=== PATIENT | female | born 1980 | race Caucasian/White ===

== ENCOUNTER 2016-05-25 13:17 | Outpatient (CLI) | payer BC | END 2016-05-25 14:43 | disposition home or self-care (01) | LOC: GENOP 13:17 | DX: Z34.90 Encounter for supervision of normal pregnancy, unspecified, unspecified trimester (principal); Z3A.00 Weeks of gestation of pregnancy not specified ==

== ENCOUNTER → 2016-06-02 | Outpatient (CLI) | payer BC ==
[~2016-06-02] MED LIST: COLACE 100MG C100 MG PO
[2016-06-02 14:08] LABS: HEMOGLOBIN 11.6 gm/dl (12.3-15.3); RED BLOOD COUNT 4.22 M/UL (4.00-5.10); WHITE BLOOD COUNT 6.7 K/UL (4.5-11.0)
[2016-06-02 14:27] LABS: BUN/CREATININE RATIO 20 (0-10)
== END ==
LOC: GENOP 13:16
PROVIDERS: Obstetrics & Gynecology
DX: Z01.818 Encounter for other preprocedural examination (principal); O34.219 Maternal care for unspecified type scar from previous cesarean delivery; Z3A.00 Weeks of gestation of pregnancy not specified
CPT/HCPCS: 36415; 80048; 81001; 85025; J1580; J7030; J7050

== ENCOUNTER 2016-06-03 07:05 | Inpatient (IN) | payer BC ==
[~2016-06-03] VITALS: Ht 175.3 cm; Wt 119.7 kg
[2016-06-04 03:33] LABS: HEMOGLOBIN 8.7 gm/dl (12.3-15.3)
[2016-06-05] MEDS ORDERED: COLACE 100MG C100 MG PO (11:10)
== END 2016-06-05 12:16 | disposition home or self-care (01) | DRG 766 ==
LOC: OB 07:05
PROVIDERS: ADMIT Obstetrics & Gynecology
PROC: 10D00Z1 Extraction of Products of Conception, Low, Open Approach (ICD-10-PCS; principal; 2016-06-03 09:00)
DX: O34.211 Maternal care for low transverse scar from previous cesarean delivery (principal); Z3A.39 39 weeks gestation of pregnancy; Z37.0 Single live birth; O24.424 Gestational diabetes mellitus in childbirth, insulin controlled; Z87.891 Personal history of nicotine dependence; O99.214 Obesity complicating childbirth
CPT/HCPCS: 36415; 36600; 82800; 82962; 85014; 85018; 90715; C9113; J0690; J2300; J2590; J2765; J7030; J7120; Q0163

== ENCOUNTER → 2020-03-14 | Outpatient (CLI) | payer OTHER | LOC: EXRD 07:52 | DX: K76.0 Fatty (change of) liver, not elsewhere classified (principal) | CPT/HCPCS: 76700 ==

== ENCOUNTER → 2020-05-04 | Outpatient (CLI) | payer OTHER | LOC: RAD 21:14 | DX: R05 Cough (principal) | CPT/HCPCS: 71046 ==

== ENCOUNTER → 2021-04-08 | Outpatient (CLI) | payer OTHER | LOC: KOH-I 13:44 | DX: M25.561 Pain in right knee (principal) | CPT/HCPCS: 73562 ==

== ENCOUNTER 2021-09-10 11:57 | Emergency (ER) | payer OTHER ==
[2021-09-10 14:18] LABS: HEMOGLOBIN 9.6 gm/dl (12.3-15.3); RED BLOOD COUNT 4.45 M/UL (4.00-5.10); WHITE BLOOD COUNT 8.6 K/UL (4.5-11.0)
[2021-09-10 18:38] LABS: BUN/CREATININE RATIO 14 (0-10)
== END 2021-09-11 03:10 | disposition short-term general hospital (02) ==
LOC: ER1 11:57
PROVIDERS: Physician Assistant
DX: N13.2 Hydronephrosis with renal and ureteral calculous obstruction (principal); N39.0 Urinary tract infection, site not specified; D64.9 Anemia, unspecified; R19.7 Diarrhea, unspecified; Z90.49 Acquired absence of other specified parts of digestive tract; Z20.822 Contact with and (suspected) exposure to COVID-19
CPT/HCPCS: 80053; 81001; 84703; 85025; 87086; 96374; 96375; 96376; 99285; J0696; J1885; J2270; J2405; U0002